=== PATIENT | female | born 1965 | race Caucasian/White ===

== ENCOUNTER 2018-12-05 19:52 | Inpatient (IN) ==
[~2018-12-05 19:52] MED LIST: *HR* Heparin 10,000 UNIT/10 ML VIAL ONE; 0.9 % Sodium Chloride 2,000 ML ONE; Heparin 1,000 UNITS/500 mL 500 ML ONE; ISOVUE-370 200 ML INFUS..BTL ONE; Nitroglycerin 1,000 MCG/10 ML VIAL IV ONE
[2018-12-05] MEDS ORDERED: *HR* FentaNYL (PF) 100 MCG/2 ML VIAL ONE (21:00)
[2018-12-05] MEDS ORDERED: *HR* Midazolam HCl 2 MG/2 ML VIAL ONE (21:00)
[2018-12-05] MEDS ORDERED: Ondansetron 4 MG/2 ML VIAL ONE (21:35)
[2018-12-05] MEDS ORDERED: *HR* Bivalirudin 250 MG VIAL IVC ONE ×2 (21:37→21:40)
[2018-12-05] MEDS ORDERED: Nitroglycerin 0.4 MG TAB.SUBL SL PRN (21:59)
[2018-12-05] MEDS ORDERED: D5% in Water 1,000 ML IVC PRN (22:08)
[2018-12-05] MEDS ORDERED: Dextrose Gel 15 GM/37.5 ML TUBE PO PRN ×2 (22:08)
[2018-12-05] MEDS ORDERED: *HR* Dextrose 50 % in Water (Syg) 50 ML SYRINGE IVP PRN (22:08)
[2018-12-05] MEDS: 0.9 % Sodium Chloride 1,000 ML IVC SCH ×2 (22:30→23:44)
[2018-12-06] MEDS ORDERED: *HR* Atropine Sulfate 1 MG/10 ML SYRINGE IVP ONE ×2 (00:05→01:49)
[2018-12-06] MEDS ORDERED: *HR* Atropine Sulfate 1 MG/10 ML SYRINGE ONE (00:12)
[2018-12-06 04:06] LABS: Basophils # 0.1 K/mcL (0.0-0.2); Basophils % 0.3 %; Hematocrit 31.8 % (35.3-44.9); Immature Granulocytes % 3.5 % (0-4); Lymphocytes # 1.3 K/mcL (0.6-4.6); Lymphocytes % 6.5 %; Mean Corpuscular HGB Conc 31.4 g/dL (31.6-35.5); Mean Corpuscular Volume 85.7 fL (83.0-100.0); Mean Platelet Volume 9.7 fL (9.4-12.4); Monocytes # 1.2 K/mcL (0.0-1.3); Monocytes % 6.1 %; Neutrophils # 16.5 K/mcL (1.6-8.9); Nucleated Red Blood Cells 0.1 /100 WBC (0); Platelet Count 331 K/mcL (140-400); Red Blood Count 3.71 M/mcL (3.82-4.97); Red Cell Distribution Width 14.9 % (11.5-14.5); Segmented Neutrophils % 83.6 %; White Blood Count 19.7 K/mcL (4.3-11.1)
[2018-12-06 04:27] LABS: Bilirubin,Direct 0.1 mg/dL (0.0-0.2); Bilirubin,Indirect 0.2 mg/dL (0.0-1.0); Bilirubin,Total 0.3 mg/dL (0.3-1.0); Total Protein 6.4 g/dL (6.4-8.9)
[2018-12-06 04:28] LABS: Albumin 3.2 g/dL (3.5-5.7); Globulin 3.2 g/dL (2.4-3.5)
[2018-12-06 04:29] LABS: % Iron Saturation 12 % (15-50); Iron 26 mcg/dL (50-170); Transferrin 154 mg/dL (203-362)
[2018-12-06 04:43] LABS: Calcium 7.6 mg/dL (8.6-10.3); Chol/HDL Ratio 5.2 (0-4.9); Potassium 6.1 mEq/L (3.5-5.1); Troponin I 51.46 ng/mL (< 0.04)
[2018-12-06 04:46] LABS: Thyroid Stimulating Hormone 0.952 mcIU/mL (0.340-5.600)
[2018-12-06 04:51] LABS: Ferritin > 1500 ng/mL (10-120)
[2018-12-06] MEDS ORDERED: Insulin DETEMIR 100 UNIT/ML X5UNITS SQ SCH (06:00)
[2018-12-06] MEDS: Ondansetron ODT 4 MG TAB.RAPDIS SL PRN ×3 (06:03→20:17)
[2018-12-06 06:53] LABS: Estimated Average Glucose 223 mg/dl
[2018-12-06] MEDS ORDERED: *HR* Dextrose 50 % in Water (Syg) 50 ML SYRINGE IVP ONE (06:53)
[2018-12-06] MEDS ORDERED: Albuterol 2.5 MG/3 ML NEBULIZER IH ONE (06:53)
[2018-12-06] MEDS ORDERED: Calcium Gluconate 1gm/50mL 1 GM/50 ML BAG IVPB ONE (06:53)
[2018-12-06] MEDS ORDERED: Insulin Human Regular 10 UNIT in 0.9 % Sodium Chloride 10 ML IV ONE (06:53)
[2018-12-06] MEDS: Aspirin 81 MG TAB.CHEW PO SCH (08:10)
[2018-12-06] MEDS: Insulin LISPRO 300 UNITS/3 ML VIAL SQ SCH ×3 (08:10→16:53)
[2018-12-06] MEDS ORDERED: Perflutren Lipid Microsphere 1.3 ML in 0.9 % Sodium Chloride 8.7 ML IVP ONE (08:41)
[2018-12-06] MEDS ORDERED: Perflutren Lipid Microsphere 2 ML VIAL ONE (08:46)
[2018-12-06] MEDS ORDERED: 0.9 % Sodium Chloride 1,000 ML IVC SCH (09:45)
[2018-12-06 10:50] LABS: Complement C3 130 mg/dL (87-200)
[2018-12-06 10:51] LABS: Potassium 5.2 mEq/L (3.5-5.1)
[2018-12-06 11:32] LABS: Bilirubin,Urine Negative (Negative); Blood,Urine Small (Negative); Clarity,Urine Cloudy (Clear); Color,Urine Yellow (Yellow); Glucose,Urine (UA) >=1000 mg/dL (Normal); Ketones,Urine Negative (Negative); Leukocyte Esterase,Urine Negative (Negative); Nitrite,Urine Negative (Negative); PH,Urine 5.5 pH Units (5.0-8.0); Protein,Urine 100 mg/dL (Neg-Trace); Specific Gravity,Urine 1.028 (1.010-1.025); Urobilinogen,Urine Normal (Normal)
[2018-12-06 11:37] LABS: Bacteria,Urine Few per hpf (None-Few); Hyaline Casts,Urine None Seen per lpf (None-Few); Squamous Epithelial Cell,Urine Many per lpf (None-Few)
[2018-12-06 12:13] LABS: Protein/Creatinine Ratio,Urine 1.12 mg/mg (0.00-0.20); Sodium, Urine 27.2 mEq/L
[2018-12-06 13:25] LABS: RBC,Urine 0-3 per hpf (0-3); Yeast,Urine Few per hpf (None Seen)
[2018-12-06] MEDS: 0.9 % Sodium Chloride 1,000 ML IVC SCH (23:45)
[2018-12-07] MEDS: Aspirin 81 MG TAB.CHEW PO SCH (08:05)
[2018-12-07] MEDS: Insulin LISPRO 300 UNITS/3 ML VIAL SQ SCH ×4 (08:06→20:35)
[2018-12-07] MEDS ORDERED: Ergocalciferol (VIT D2) 50,000 UNIT (1.25MG) CAP PO SCH (09:00)
[2018-12-07] MEDS ORDERED: *HR* Heparin 5,000 UNIT/ML VIAL SQ SCH ×2 (09:00)
[2018-12-07 09:21] LABS: Calcium 7.7 mg/dL (8.6-10.3); Potassium 5.1 mEq/L (3.5-5.1)
[2018-12-07] MEDS ORDERED: *HR* Heparin 5,000 UNIT/ML VIAL IVP PRN ×2 (09:32)
[2018-12-07 09:38] LABS: Basophils # 0.1 K/mcL (0.0-0.2); Basophils % 0.4 %; Eosinophils % 0.1 %; Hematocrit 33.9 % (35.3-44.9); Hemoglobin 10.9 g/dL (11.5-15.4); Immature Granulocytes % 2.2 % (0-4); Lymphocytes # 1.8 K/mcL (0.6-4.6); Lymphocytes % 11.1 %; Mean Corpuscular HGB Conc 32.2 g/dL (31.6-35.5); Mean Corpuscular Hemoglobin 27.2 pg (28.0-33.3); Mean Corpuscular Volume 84.5 fL (83.0-100.0); Mean Platelet Volume 9.8 fL (9.4-12.4); Monocytes # 0.8 K/mcL (0.0-1.3); Neutrophils # 13.4 K/mcL (1.6-8.9); Nucleated Red Blood Cells 0.4 /100 WBC (0); Platelet Count 436 K/mcL (140-400); Red Blood Count 4.01 M/mcL (3.82-4.97); Red Cell Distribution Width 15.3 % (11.5-14.5); Segmented Neutrophils % 81.2 %; White Blood Count 16.5 K/mcL (4.3-11.1)
[2018-12-07] MEDS ORDERED: Heparin 25,000 UNIT/250 ML D5W 25,000 UNIT/250 ML IV.SOLN IVC SCH (09:45)
[2018-12-07] MEDS: 0.9 % Sodium Chloride 1,000 ML IVC SCH (10:51)
[2018-12-07] MEDS: Nitroglycerin 25 MG/250 ML INFUS..BTL IVC SCH (11:13)
[2018-12-07 11:19] LABS: Hematocrit 33.8 % (35.3-44.9); Hemoglobin 10.2 g/dL (11.5-15.4); Mean Corpuscular HGB Conc 30.2 g/dL (31.6-35.5); Mean Corpuscular Hemoglobin 26.8 pg (28.0-33.3); Mean Corpuscular Volume 88.9 fL (83.0-100.0); Mean Platelet Volume 9.7 fL (9.4-12.4); Platelet Count 401 K/mcL (140-400); Red Cell Distribution Width 15.4 % (11.5-14.5); White Blood Count 16.8 K/mcL (4.3-11.1)
[2018-12-07 11:37] LABS: Heparin anti-factor XA UFH 0.01 IU/mL (0.30-0.70); INR 1.1
[2018-12-07] MEDS ORDERED: Verapamil 5 MG/2 ML VIAL ONE (11:37)
[2018-12-07] MEDS ORDERED: ISOVUE-370 200 ML INFUS..BTL ONE (11:38)
[2018-12-07] MEDS ORDERED: Nitroglycerin 1,000 MCG/10 ML VIAL IV ONE (11:38)
[2018-12-07] MEDS ORDERED: *HR* Midazolam HCl 2 MG/2 ML VIAL ONE (11:38)
[2018-12-07] MEDS ORDERED: 0.9 % Sodium Chloride 2,000 ML ONE (11:38)
[2018-12-07] MEDS ORDERED: *HR* Heparin 10,000 UNIT/10 ML VIAL ONE ×2 (11:38→12:18)
[2018-12-07] MEDS ORDERED: Heparin 1,000 UNITS/500 mL 500 ML ONE (11:38)
[2018-12-07] MEDS ORDERED: Ondansetron 4 MG/2 ML VIAL ONE (12:02)
[2018-12-07] MEDS ORDERED: 0.9 % Sodium Chloride 250 ML IVC PRN (12:47)
[2018-12-07] MEDS ORDERED: 0.9 % Sodium Chloride 1,000 ML PRIME SCH (13:00)
[2018-12-07 15:37] LABS: Hepatitis B Surface Antibody < 3.10 mIU/mL
[2018-12-07 16:17] LABS: Hepatitis B Core IgM Nonreactive (Nonreactive)
[2018-12-07 16:48] LABS: Hepatitis B Surface Antigen Nonreactive (Nonreactive)
[2018-12-08] MEDS: Ondansetron ODT 4 MG TAB.RAPDIS SL PRN ×3 (00:24→17:18)
[2018-12-08 05:08] LABS: Basophils # 0.1 K/mcL (0.0-0.2); Basophils % 0.4 %; Eosinophils # 0.1 K/mcL (0.0-0.6); Eosinophils % 0.6 %; Hematocrit 29.6 % (35.3-44.9); Hemoglobin 9.6 g/dL (11.5-15.4); Immature Granulocytes % 1.4 % (0-4); Lymphocytes % 12.1 %; Mean Corpuscular HGB Conc 32.4 g/dL (31.6-35.5); Mean Corpuscular Hemoglobin 27.2 pg (28.0-33.3); Mean Corpuscular Volume 83.9 fL (83.0-100.0); Mean Platelet Volume 9.2 fL (9.4-12.4); Monocytes % 6.1 %; Neutrophils # 13.4 K/mcL (1.6-8.9); Nucleated Red Blood Cells 0.5 /100 WBC (0); Platelet Count 376 K/mcL (140-400); Red Blood Count 3.53 M/mcL (3.82-4.97); Red Cell Distribution Width 15.6 % (11.5-14.5); Segmented Neutrophils % 79.4 %; White Blood Count 16.8 K/mcL (4.3-11.1)
[2018-12-08 05:17] LABS: Kappa Qnt Free Light Chains 6.84 mg/dL (0.33-1.94); Lambda Qnt Free Light Chains 5.72 mg/dL (0.57-2.63)
[2018-12-08 05:27] LABS: Calcium 7.5 mg/dL (8.6-10.3); Potassium 4.8 mEq/L (3.5-5.1)
[2018-12-08 05:58] LABS: Urine Collection Volume RANDOM mL
[2018-12-08] MEDS: *HR* Heparin 5,000 UNIT/ML VIAL SQ SCH ×2 (06:10→17:44)
[2018-12-08] MEDS ORDERED: *HR* Atropine Sulfate 1 MG/10 ML SYRINGE ONE (06:54)
[2018-12-08] MEDS ORDERED: 0.9 % Sodium Chloride 250 ML IVC PRN (07:02)
[2018-12-08] MEDS ORDERED: Albumin 25% 25gram/100mL 25 GM/100 ML IV.SOLN IVPB PRN (07:02)
[2018-12-08] MEDS ORDERED: *HR* Heparin 10,000 UNIT/10 ML VIAL IV PRN (08:03)
[2018-12-08] MEDS: Aspirin 81 MG TAB.CHEW PO SCH (11:45)
[2018-12-08 13:09] LABS: ANA IgG by ELISA NONE DETECTED (None Detected); Serine Protease-3 Antibody 4 AU/mL (0-19)
[2018-12-08] MEDS: Insulin LISPRO 300 UNITS/3 ML VIAL SQ SCH ×4 (19:34→19:55)
[2018-12-08] MEDS: Nitroglycerin 25 MG/250 ML INFUS..BTL IVC SCH (19:54)
[2018-12-09] MEDS: *HR* Heparin 5,000 UNIT/ML VIAL SQ SCH ×2 (05:33→19:37)
[2018-12-09] MEDS ORDERED: *HR* Heparin 10,000 UNIT/10 ML VIAL ONE (09:13)
[2018-12-09] MEDS ORDERED: 0.9 % Sodium Chloride 1,000 ML ONE ×2 (09:13→09:52)
[2018-12-09] MEDS ORDERED: *HR* Atropine Sulfate 1 MG/10 ML SYRINGE IV ONE (10:25)
[2018-12-09] MEDS ORDERED: *HR* Promethazine 25 MG/ML VIAL ONE (16:08)
[2018-12-09 18:00] LABS: Alpha 2 Globulin (PEP) 1.32 g/dL (0.48-1.05); Beta Globulin (PEP) 0.67 g/dL (0.48-1.10)
[2018-12-09] MEDS ORDERED: Famotidine 20 MG/2 ML VIAL ONE (19:01)
[2018-12-09] MEDS: Aspirin 81 MG TAB.CHEW PO SCH (19:36)
[2018-12-09] MEDS: Insulin LISPRO 300 UNITS/3 ML VIAL SQ SCH ×2 (19:36→19:37)
[2018-12-09] MEDS ORDERED: *HR* Promethazine 25 MG/ML VIAL IV PRN (21:12)
[2018-12-09] MEDS: Famotidine 20 MG/2 ML VIAL IVP SCH (21:54)
[2018-12-10 00:58] LABS: Basophils # 0.1 K/mcL (0.0-0.2); Basophils % 0.4 %; Eosinophils # 0.1 K/mcL (0.0-0.6); Eosinophils % 0.9 %; Hemoglobin 9.2 g/dL (11.5-15.4); Immature Granulocytes % 1.8 % (0-4); Lymphocytes % 14.8 %; Mean Corpuscular HGB Conc 30.7 g/dL (31.6-35.5); Mean Corpuscular Hemoglobin 26.8 pg (28.0-33.3); Mean Corpuscular Volume 87.5 fL (83.0-100.0); Monocytes % 7.2 %; Neutrophils # 10.2 K/mcL (1.6-8.9); Nucleated Red Blood Cells 0.6 /100 WBC (0); Platelet Count 331 K/mcL (140-400); Red Blood Count 3.43 M/mcL (3.82-4.97); Red Cell Distribution Width 15.7 % (11.5-14.5); Segmented Neutrophils % 74.9 %; White Blood Count 13.7 K/mcL (4.3-11.1)
[2018-12-10 01:26] LABS: Calcium 7.7 mg/dL (8.6-10.3); Magnesium 2.2 mg/dL (1.6-2.6); Phosphorous 7.5 mg/dL (2.7-4.5); Potassium 4.6 mEq/L (3.5-5.1)
[2018-12-10 04:08] LABS: Basophils # 0.1 K/mcL (0.0-0.2); Basophils % 0.4 %; Eosinophils # 0.1 K/mcL (0.0-0.6); Hematocrit 29.7 % (35.3-44.9); Immature Granulocytes % 2.1 % (0-4); Lymphocytes % 22.1 %; Mean Corpuscular HGB Conc 30.3 g/dL (31.6-35.5); Mean Corpuscular Hemoglobin 26.8 pg (28.0-33.3); Mean Corpuscular Volume 88.4 fL (83.0-100.0); Mean Platelet Volume 9.5 fL (9.4-12.4); Monocytes # 1.1 K/mcL (0.0-1.3); Monocytes % 7.8 %; Nucleated Red Blood Cells 0.9 /100 WBC (0); Platelet Count 332 K/mcL (140-400); Red Blood Count 3.36 M/mcL (3.82-4.97); Red Cell Distribution Width 15.8 % (11.5-14.5); Segmented Neutrophils % 66.6 %; White Blood Count 13.5 K/mcL (4.3-11.1)
[2018-12-10 04:26] LABS: Calcium 7.9 mg/dL (8.6-10.3); Magnesium 2.3 mg/dL (1.6-2.6); Potassium 4.8 mEq/L (3.5-5.1)
[2018-12-10] MEDS: *HR* Heparin 5,000 UNIT/ML VIAL SQ SCH ×2 (05:04→17:06)
[2018-12-10 07:14] LABS: IFE Reflexed IFE Done; Immunoglobulin A 234 mg/dL (68-408); Immunoglobulin G 1060 mg/dL (768-1632); Immunoglobulin M 34 mg/dL (35-263)
[2018-12-10] MEDS: Aspirin 81 MG TAB.CHEW PO SCH (08:43)
[2018-12-10] MEDS: Famotidine 20 MG/2 ML VIAL IVP SCH ×2 (08:43→20:46)
[2018-12-10] MEDS: Insulin LISPRO 300 UNITS/3 ML VIAL SQ SCH ×4 (08:44→20:50)
[2018-12-10] MEDS ORDERED: *HR* Promethazine 25 MG/ML VIAL IV PRN (17:17)
[2018-12-10] MEDS ORDERED: Nitroglycerin 0.4 MG TAB.SUBL SL PRN (17:17)
[2018-12-10] MEDS ORDERED: *HR* Dextrose 50 % in Water (Syg) 50 ML SYRINGE IVP PRN (17:17)
[2018-12-10] MEDS ORDERED: Albumin 25% 25gram/100mL 25 GM/100 ML IV.SOLN IVPB PRN (17:17)
[2018-12-10] MEDS ORDERED: 0.9 % Sodium Chloride 250 ML IVC PRN (17:17)
[2018-12-10] MEDS ORDERED: Dextrose Gel 15 GM/37.5 ML TUBE PO PRN ×2 (17:17)
[2018-12-10] MEDS ORDERED: D5% in Water 1,000 ML IVC PRN (17:17)
[2018-12-10] MEDS ORDERED: 0.9 % Sodium Chloride 1,000 ML PRIME SCH (17:17)
[2018-12-10] MEDS ORDERED: *HR* Heparin 10,000 UNIT/10 ML VIAL IV PRN (17:17)
[2018-12-10] MEDS ORDERED: Cholecalciferol (D-3) 1,000 UNIT (25MCG) TABLET PO SCH (19:00)
[2018-12-10] MEDS ORDERED: NON-FORMULARY MEDICATION 1 EACH EACH (Atorvastatin Calcium [Lipitor] 80 MG) PO SCH (21:00)
[2018-12-11 04:50] LABS: Hematocrit 29.2 % (35.3-44.9); Hemoglobin 9.3 g/dL (11.5-15.4); Mean Corpuscular HGB Conc 31.8 g/dL (31.6-35.5); Mean Corpuscular Hemoglobin 26.8 pg (28.0-33.3); Mean Corpuscular Volume 84.1 fL (83.0-100.0); Platelet Count 302 K/mcL (140-400); Red Blood Count 3.47 M/mcL (3.82-4.97); Red Cell Distribution Width 15.4 % (11.5-14.5); White Blood Count 11.8 K/mcL (4.3-11.1)
[2018-12-11 05:10] LABS: Calcium 7.9 mg/dL (8.6-10.3); Potassium 4.5 mEq/L (3.5-5.1)
[2018-12-11] MEDS ORDERED: *HR* Heparin 10,000 UNIT/10 ML VIAL IV PRN (07:56)
[2018-12-11] MEDS ORDERED: 0.9 % Sodium Chloride 250 ML IVC PRN (07:56)
[2018-12-11] MEDS ORDERED: 0.9 % Sodium Chloride 1,000 ML PRIME SCH (08:00)
[2018-12-11] MEDS: *HR* Heparin 5,000 UNIT/ML VIAL SQ SCH ×2 (08:04→18:35)
[2018-12-11] MEDS: Aspirin 81 MG TAB.CHEW PO SCH (08:59)
[2018-12-11] MEDS: Famotidine 20 MG/2 ML VIAL IVP SCH ×2 (08:59→20:11)
[2018-12-11] MEDS: Insulin LISPRO 300 UNITS/3 ML VIAL SQ SCH ×4 (09:00→20:09)
[2018-12-12 01:33] LABS: Hematocrit 29.8 % (35.3-44.9); Hemoglobin 9.7 g/dL (11.5-15.4); Mean Corpuscular HGB Conc 32.6 g/dL (31.6-35.5); Mean Corpuscular Hemoglobin 27.2 pg (28.0-33.3); Mean Corpuscular Volume 83.5 fL (83.0-100.0); Mean Platelet Volume 9.7 fL (9.4-12.4); Platelet Count 292 K/mcL (140-400); Red Blood Count 3.57 M/mcL (3.82-4.97); Red Cell Distribution Width 15.2 % (11.5-14.5); White Blood Count 10.9 K/mcL (4.3-11.1)
[2018-12-12 01:53] LABS: Potassium 4.9 mEq/L (3.5-5.1)
[2018-12-12] MEDS: *HR* Heparin 5,000 UNIT/ML VIAL SQ SCH ×2 (04:33→18:07)
[2018-12-12] MEDS ORDERED: CeFAZolin Syr 3,000MG/30 ML 3,000 MG/30 ML SYRINGE IVPB ONE (08:16)
[2018-12-12] MEDS: Insulin LISPRO 300 UNITS/3 ML VIAL SQ SCH ×3 (08:30→18:03)
[2018-12-12] MEDS: Aspirin 81 MG TAB.CHEW PO SCH (09:02)
[2018-12-12] MEDS: Famotidine 20 MG/2 ML VIAL IVP SCH ×2 (09:03→21:12)
[2018-12-12 10:39] LABS: Potassium,Urine 11.4 mEq/L; Protein/Creatinine Ratio,Urine 0.87 mg/mg (0.00-0.20); Sodium, Urine 43.1 mEq/L
[2018-12-12] MEDS ORDERED: Famotidine 20 MG/2 ML VIAL IVP SCH (10:45)
[2018-12-12] MEDS: amLODIPine 5 MG TABLET PO SCH (11:01)
[2018-12-12] MEDS ORDERED: *HR* Midazolam HCl 2 MG/2 ML VIAL ONE ×2 (14:00→15:11)
[2018-12-12] MEDS ORDERED: 0.9 % Sodium Chloride 1,000 ML ONE (14:01)
[2018-12-12] MEDS ORDERED: 0.9 % Sodium Chloride 500 ML ONE (14:01)
[2018-12-12] MEDS ORDERED: *HR* FentaNYL (PF) 100 MCG/2 ML VIAL ONE (14:01)
[2018-12-12] MEDS: Insulin DETEMIR 100 UNIT/ML X5UNITS SQ SCH (21:12)
[2018-12-13 05:11] LABS: Hematocrit 27.1 % (35.3-44.9); Hemoglobin 8.5 g/dL (11.5-15.4); Mean Corpuscular HGB Conc 31.4 g/dL (31.6-35.5); Mean Corpuscular Hemoglobin 26.7 pg (28.0-33.3); Mean Corpuscular Volume 85.2 fL (83.0-100.0); Mean Platelet Volume 9.3 fL (9.4-12.4); Platelet Count 288 K/mcL (140-400); Red Blood Count 3.18 M/mcL (3.82-4.97); Red Cell Distribution Width 14.9 % (11.5-14.5)
[2018-12-13 05:28] LABS: Calcium 8.1 mg/dL (8.6-10.3); Magnesium 2.4 mg/dL (1.6-2.6); Potassium 5.1 mEq/L (3.5-5.1)
[2018-12-13] MEDS: *HR* Heparin 5,000 UNIT/ML VIAL SQ SCH ×2 (05:35→17:26)
[2018-12-13] MEDS: amLODIPine 5 MG TABLET PO SCH (08:03)
[2018-12-13] MEDS: Aspirin 81 MG TAB.CHEW PO SCH (08:03)
[2018-12-13] MEDS: Famotidine 20 MG/2 ML VIAL IVP SCH ×2 (08:04→20:18)
[2018-12-13] MEDS: Insulin LISPRO 300 UNITS/3 ML VIAL SQ SCH ×3 (08:06→17:27)
[2018-12-13] MEDS: Metoprolol XL (24 HR) Succ 25 MG TAB.ER.24H PO SCH (11:35)
[2018-12-13] MEDS: Insulin DETEMIR 100 UNIT/ML X5UNITS SQ SCH (20:19)
[2018-12-14 02:14] LABS: Hematocrit 28.2 % (35.3-44.9); Mean Corpuscular HGB Conc 31.9 g/dL (31.6-35.5); Mean Corpuscular Hemoglobin 26.7 pg (28.0-33.3); Mean Corpuscular Volume 83.7 fL (83.0-100.0); Platelet Count 275 K/mcL (140-400); Red Blood Count 3.37 M/mcL (3.82-4.97); White Blood Count 10.2 K/mcL (4.3-11.1)
[2018-12-14 02:33] LABS: Calcium 8.1 mg/dL (8.6-10.3); Potassium 5.4 mEq/L (3.5-5.1)
[2018-12-14] MEDS: *HR* Heparin 5,000 UNIT/ML VIAL SQ SCH ×2 (05:27→17:49)
[2018-12-14] MEDS: Insulin LISPRO 300 UNITS/3 ML VIAL SQ SCH ×3 (08:18→16:57)
[2018-12-14] MEDS: Aspirin 81 MG TAB.CHEW PO SCH (08:20)
[2018-12-14] MEDS: Metoprolol XL (24 HR) Succ 25 MG TAB.ER.24H PO SCH (08:20)
[2018-12-14] MEDS: amLODIPine 5 MG TABLET PO SCH (08:21)
[2018-12-14] MEDS: Famotidine 20 MG/2 ML VIAL IVP SCH (08:21)
[2018-12-14] MEDS ORDERED: Ergocalciferol (VIT D2) 50,000 UNIT (1.25MG) CAP PO SCH (09:00)
[2018-12-14] MEDS ORDERED: Furosemide 20 MG TABLET PO SCH (09:00)
[2018-12-14] MEDS ORDERED: Insulin Human Regular 10 UNIT in 0.9 % Sodium Chloride 10 ML IV ONE (12:58)
[2018-12-14] MEDS ORDERED: *HR* Dextrose 25% in Water (Syg) 10 ML SYRINGE IVP ONE (12:59)
[2018-12-14 15:10] VITALS: BP 156/76
== END 2018-12-14 20:31 | disposition home or self-care (01) | DRG 242 ==
LOC: ICNU 21:54 → SUATTDRO 21:54 → 2NNU 12-11 13:17 → 2NENU 12-13 13:28
PROVIDERS: ADMIT Internal Medicine Interventional Cardiology; ATTEND Internal Medicine

== ENCOUNTER 2019-01-23 09:04 | Observation (INO) ==
[2019-01-23] MEDS ORDERED: *HR* HYDROcodone/Acet 5/325 mg TABLET PO ONE (09:55)
[2019-01-23 10:24] LABS: Basophils # 0.1 K/mcL (0.0-0.2); Basophils % 0.4 %; Eosinophils # 0.3 K/mcL (0.0-0.6); Eosinophils % 2.3 %; Hematocrit 28.8 % (35.3-44.9); Hemoglobin 9.1 g/dL (11.5-15.4); Immature Granulocytes % 1.6 % (0-4); Lymphocytes # 1.5 K/mcL (0.6-4.6); Lymphocytes % 10.4 %; Mean Corpuscular HGB Conc 31.6 g/dL (31.6-35.5); Mean Corpuscular Hemoglobin 25.8 pg (28.0-33.3); Mean Corpuscular Volume 81.6 fL (83.0-100.0); Mean Platelet Volume 8.5 fL (9.4-12.4); Monocytes # 0.9 K/mcL (0.0-1.3); Monocytes % 6.1 %; Neutrophils # 11.2 K/mcL (1.6-8.9); Platelet Count 431 K/mcL (140-400); Red Blood Count 3.53 M/mcL (3.82-4.97); Red Cell Distribution Width 15.2 % (11.5-14.5); Segmented Neutrophils % 79.2 %; White Blood Count 14.1 K/mcL (4.3-11.1)
[2019-01-23 10:42] LABS: Calcium 9.1 mg/dL (8.6-10.3); Potassium 4.7 mEq/L (3.5-5.1); Uric Acid 9.2 mg/dL (2.3-7.6)
[2019-01-23] MEDS ORDERED: predniSONE 20 MG TABLET PO ONE (11:22)
[2019-01-23] MEDS ORDERED: Ketorolac 15 MG/ML VIAL IVP ONE (11:32)
[2019-01-23] MEDS ORDERED: Ondansetron 4 MG/2 ML VIAL IVP PRN (11:53)
[2019-01-23] MEDS ORDERED: Acetaminophen 325 MG TABLET PO PRN (11:55)
[2019-01-23] MEDS ORDERED: *HR* Labetalol 20 MG/4 ML SYRINGE IVP PRN (11:55)
[2019-01-23] MEDS ORDERED: Naloxone 0.4 MG/ML INJ IVP PRN (11:55)
[2019-01-23] MEDS ORDERED: *HR* OxyCODONE Immed Rel 5 MG TABLET PO PRN (11:55)
[2019-01-23] MEDS ORDERED: Dextrose Gel 15 GM/37.5 ML TUBE PO PRN ×2 (11:56)
[2019-01-23] MEDS ORDERED: D5% in Water 1,000 ML IVC PRN (11:56)
[2019-01-23] MEDS ORDERED: *HR* Dextrose 50 % in Water (Syg) 50 ML SYRINGE IVP PRN (11:56)
[2019-01-23] MEDS: Insulin LISPRO 300 UNITS/3 ML VIAL SQ SCH ×2 (17:43→20:33)
[2019-01-23] MEDS: *HR* HYDROcodone/Acet 5/325 mg TABLET PO PRN (20:32)
[2019-01-23] MEDS: Insulin DETEMIR 100 UNIT/ML X5UNITS SQ SCH (21:57)
[2019-01-24 05:07] LABS: Basophils # 0.1 K/mcL (0.0-0.2); Basophils % 0.6 %; Eosinophils # 0.5 K/mcL (0.0-0.6); Eosinophils % 3.8 %; Hematocrit 28.8 % (35.3-44.9); Hemoglobin 8.9 g/dL (11.5-15.4); Lymphocytes # 1.5 K/mcL (0.6-4.6); Lymphocytes % 11.4 %; Mean Corpuscular HGB Conc 30.9 g/dL (31.6-35.5); Mean Corpuscular Volume 80.9 fL (83.0-100.0); Monocytes % 7.3 %; Neutrophils # 9.9 K/mcL (1.6-8.9); Platelet Count 495 K/mcL (140-400); Red Blood Count 3.56 M/mcL (3.82-4.97); Red Cell Distribution Width 15.2 % (11.5-14.5); Segmented Neutrophils % 74.9 %; White Blood Count 13.3 K/mcL (4.3-11.1)
[2019-01-24 05:32] LABS: Calcium 8.7 mg/dL (8.6-10.3); Magnesium 2.3 mg/dL (1.6-2.6); Potassium 4.8 mEq/L (3.5-5.1)
[2019-01-24] MEDS: amLODIPine 5 MG TABLET PO SCH (07:39)
[2019-01-24] MEDS: Aspirin 81 MG TAB.CHEW PO SCH (07:39)
[2019-01-24] MEDS: Metoprolol XL (24 HR) Succ 50 MG TAB.ER.24H PO SCH (07:39)
[2019-01-24] MEDS: Insulin LISPRO 300 UNITS/3 ML VIAL SQ SCH ×3 (07:40→16:36)
[2019-01-24] MEDS ORDERED: Furosemide 20 MG TABLET PO SCH (09:00)
[2019-01-24] MEDS: predniSONE 20 MG TABLET PO SCH (09:05)
[2019-01-24] MEDS: *HR* HYDROcodone/Acet 5/325 mg TABLET PO PRN (14:08)
[2019-01-25] MEDS: *HR* HYDROcodone/Acet 5/325 mg TABLET PO PRN ×2 (00:13→08:16)
[2019-01-25] MEDS: Insulin LISPRO 300 UNITS/3 ML VIAL SQ SCH ×8 (00:14→20:55)
[2019-01-25] MEDS: Insulin DETEMIR 100 UNIT/ML X5UNITS SQ SCH (00:14)
[2019-01-25 07:41] LABS: Basophils # 0.1 K/mcL (0.0-0.2); Basophils % 0.4 %; Eosinophils % 0.2 %; Hematocrit 27.8 % (35.3-44.9); Hemoglobin 8.7 g/dL (11.5-15.4); Immature Granulocytes % 2.9 % (0-4); Lymphocytes # 1.6 K/mcL (0.6-4.6); Lymphocytes % 10.6 %; Mean Corpuscular HGB Conc 31.3 g/dL (31.6-35.5); Mean Corpuscular Hemoglobin 25.1 pg (28.0-33.3); Mean Corpuscular Volume 80.3 fL (83.0-100.0); Mean Platelet Volume 9.1 fL (9.4-12.4); Monocytes # 0.9 K/mcL (0.0-1.3); Monocytes % 5.9 %; Neutrophils # 11.8 K/mcL (1.6-8.9); Platelet Count 535 K/mcL (140-400); Red Blood Count 3.46 M/mcL (3.82-4.97); Red Cell Distribution Width 15.1 % (11.5-14.5); White Blood Count 14.7 K/mcL (4.3-11.1)
[2019-01-25] MEDS: predniSONE 20 MG TABLET PO SCH (08:16)
[2019-01-25] MEDS: Metoprolol XL (24 HR) Succ 50 MG TAB.ER.24H PO SCH (08:16)
[2019-01-25] MEDS: Aspirin 81 MG TAB.CHEW PO SCH (08:16)
[2019-01-25] MEDS: amLODIPine 5 MG TABLET PO SCH (08:16)
[2019-01-25 09:12] LABS: Calcium 8.9 mg/dL (8.6-10.3); Potassium 5.1 mEq/L (3.5-5.1)
[2019-01-25 09:57] LABS: ANA IgG by ELISA DETECTED (None Detected)
[2019-01-25] MEDS ORDERED: Insulin DETEMIR 100 UNIT/ML X5UNITS SQ SCH (21:00)
[2019-01-26 04:30] LABS: Basophils # 0.1 K/mcL (0.0-0.2); Basophils % 0.3 %; Eosinophils % 0.1 %; Hematocrit 26.9 % (35.3-44.9); Hemoglobin 8.7 g/dL (11.5-15.4); Immature Granulocytes % 3.4 % (0-4); Lymphocytes # 1.8 K/mcL (0.6-4.6); Lymphocytes % 11.2 %; Mean Corpuscular HGB Conc 32.3 g/dL (31.6-35.5); Mean Corpuscular Hemoglobin 25.9 pg (28.0-33.3); Mean Corpuscular Volume 80.1 fL (83.0-100.0); Mean Platelet Volume 8.7 fL (9.4-12.4); Monocytes # 0.9 K/mcL (0.0-1.3); Monocytes % 5.8 %; Neutrophils # 12.9 K/mcL (1.6-8.9); Nucleated Red Blood Cells 0.2 /100 WBC (0); Platelet Count 574 K/mcL (140-400); Red Blood Count 3.36 M/mcL (3.82-4.97); Segmented Neutrophils % 79.2 %; White Blood Count 16.3 K/mcL (4.3-11.1)
[2019-01-26 04:57] LABS: Potassium 5.1 mEq/L (3.5-5.1)
[2019-01-26 07:39] VITALS: BP 163/95
[2019-01-26] MEDS: Metoprolol XL (24 HR) Succ 50 MG TAB.ER.24H PO SCH (09:14)
[2019-01-26] MEDS: Aspirin 81 MG TAB.CHEW PO SCH (09:14)
[2019-01-26] MEDS: amLODIPine 5 MG TABLET PO SCH (09:14)
[2019-01-26] MEDS: predniSONE 20 MG TABLET PO SCH (09:16)
[2019-01-26] MEDS: Insulin LISPRO 300 UNITS/3 ML VIAL SQ SCH ×4 (09:17→13:50)
[2019-01-26 17:35] LABS: ANA HEp-2 IgG IFA DETECTED (<1:80); Anti Nuclear Ab Pattern SPECKLED
== END 2019-01-26 16:05 | disposition home or self-care (01) ==
LOC: 3NENU 09:04 → EMEROOARM 09:04 → 3NENU 15:40
PROVIDERS: ADMIT Internal Medicine; ATTEND Internal Medicine

== ENCOUNTER 2019-02-12 18:51 | Inpatient (IN) ==
[2019-02-12] MEDS ORDERED: Ondansetron 4 MG/2 ML VIAL IVP ONE (22:08)
[2019-02-12] MEDS ORDERED: Ondansetron 4 MG/2 ML VIAL ONE (22:09)
[2019-02-12] MEDS ORDERED: *HR* Heparin 5,000 UNIT/ML VIAL IVP ONE (22:45)
[2019-02-12] MEDS ORDERED: *HR* Heparin 5,000 UNIT/ML VIAL IVP PRN ×2 (22:45)
[2019-02-12 23:37] LABS: Basophils # 0.1 K/mcL (0.0-0.2); Basophils % 0.5 %; Eosinophils # 0.2 K/mcL (0.0-0.6); Eosinophils % 1.5 %; Hematocrit 34.9 % (35.3-44.9); Hemoglobin 10.6 g/dL (11.5-15.4); Immature Granulocytes % 2.7 % (0-4); Lymphocytes # 1.3 K/mcL (0.6-4.6); Lymphocytes % 10.3 %; Mean Corpuscular HGB Conc 30.4 g/dL (31.6-35.5); Mean Corpuscular Hemoglobin 25.8 pg (28.0-33.3); Mean Corpuscular Volume 84.9 fL (83.0-100.0); Monocytes # 0.8 K/mcL (0.0-1.3); Monocytes % 5.9 %; Neutrophils # 10.2 K/mcL (1.6-8.9); Nucleated Red Blood Cells 0.3 /100 WBC (0); Platelet Count 263 K/mcL (140-400); Red Blood Count 4.11 M/mcL (3.82-4.97); Red Cell Distribution Width 16.8 % (11.5-14.5); Segmented Neutrophils % 79.1 %; White Blood Count 12.9 K/mcL (4.3-11.1)
[2019-02-12 23:44] LABS: Heparin anti-factor XA UFH 0.18 IU/mL (0.30-0.70)
[2019-02-12 23:45] LABS: INR 1.1; Prothrombin Time 12.2 Seconds (9.4-12.1)
[2019-02-13] MEDS: Heparin 25,000 UNIT/250 ML D5W 25,000 UNIT/250 ML IV.SOLN IVC SCH ×2 (00:09→16:46)
[2019-02-13 00:22] LABS: Albumin 3.2 g/dL (3.5-5.7); Albumin/Globulin Ratio 1.1 (1.1-2.2); Bilirubin,Total 2.1 mg/dL (0.3-1.0); Calcium 8.1 mg/dL (8.6-10.3); Globulin 2.9 g/dL (2.4-3.5); Potassium 5.9 mEq/L (3.5-5.1); Total Protein 6.1 g/dL (6.4-8.9)
[2019-02-13] MEDS ORDERED: Dextrose Gel 15 GM/37.5 ML TUBE PO PRN ×4 (00:37→14:24)
[2019-02-13] MEDS ORDERED: *HR* Dextrose 50 % in Water (Syg) 50 ML SYRINGE IVP PRN ×2 (00:37→14:24)
[2019-02-13] MEDS ORDERED: Calcium Gluconate 1gm/50mL 1 GM/50 ML BAG IVPB ONE (00:37)
[2019-02-13] MEDS ORDERED: D5% in Water 1,000 ML IVC PRN ×2 (00:37→14:24)
[2019-02-13] MEDS ORDERED: Insulin Human Regular 10 UNIT in 0.9 % Sodium Chloride 10 ML IV ONE (00:38)
[2019-02-13] MEDS ORDERED: Albuterol 2.5 MG/3 ML NEBULIZER IH ONE (00:42)
[2019-02-13 00:43] LABS: Troponin I 0.06 ng/mL (< 0.04)
[2019-02-13] MEDS: Furosemide 20 MG/2 ML VIAL IVP SCH ×2 (01:07→09:24)
[2019-02-13] MEDS: *HR* Metoprolol 5 MG/5 ML VIAL IVP PRN ×3 (01:08→01:30)
[2019-02-13] MEDS ORDERED: Amiodarone Premix 150 MG/100 ML BAG IVPB ONE (01:35)
[2019-02-13] MEDS ORDERED: Naloxone 0.4 MG/ML INJ IVP PRN ×2 (01:38→14:24)
[2019-02-13] MEDS ORDERED: Ondansetron 4 MG/2 ML VIAL IVP PRN ×2 (01:38→14:24)
[2019-02-13] MEDS ORDERED: *HR* Promethazine 25 MG/ML VIAL IVP PRN ×2 (01:38→14:24)
[2019-02-13] MEDS ORDERED: Amiodarone Premix 360 MG/200 ML BAG IVC ONE (02:00)
[2019-02-13] MEDS ORDERED: Insulin LISPRO 300 UNITS/3 ML VIAL SQ SCH ×2 (06:00→11:02)
[2019-02-13 06:04] LABS: Mean Corpuscular Hemoglobin 25.6 pg (28.0-33.3); Mean Platelet Volume 10.2 fL (9.4-12.4)
[2019-02-13 06:05] LABS: Hematocrit 35.2 % (35.3-44.9); Hemoglobin 10.4 g/dL (11.5-15.4); Mean Corpuscular HGB Conc 29.5 g/dL (31.6-35.5); Mean Corpuscular Volume 86.7 fL (83.0-100.0); Platelet Count 215 K/mcL (140-400); Red Blood Count 4.06 M/mcL (3.82-4.97); Red Cell Distribution Width 16.9 % (11.5-14.5)
[2019-02-13] MEDS ORDERED: 0.9 % Sodium Chloride 1,000 ML IVC ONE (06:55)
[2019-02-13] MEDS ORDERED: Amiodarone Premix 360 MG/200 ML BAG IVC SCH ×2 (08:00→14:24)
[2019-02-13 08:06] LABS: Calcium 8.2 mg/dL (8.6-10.3); Potassium 5.4 mEq/L (3.5-5.1)
[2019-02-13 08:33] LABS: Troponin I 0.04 ng/mL (< 0.04)
[2019-02-13] MEDS ORDERED: MethylPREDNISolone 40 MG/ML VIAL IVP SCH (08:59)
[2019-02-13] MEDS ORDERED: Doxycycline 100 MG in 0.9 % Sodium Chloride Mini Bag 100 ML IVPB SCH (10:00)
[2019-02-13 10:29] LABS: Adenovirus Not Detected (Not Detect); Bordetella Pertussis Not Detected (Not Detect); Chlamydophila pneumoniae Not Detected (Not Detect); Coronavirus 229E Not Detected (Not Detect); Coronavirus HKU1 Not Detected (Not Detect); Coronavirus NL63 Not Detected (Not Detect); Coronavirus OC43 Not Detected (Not Detect); Human Metapneumovirus Not Detected (Not Detect); Human Rhinovirus/Enterovirus Not Detected (Not Detect); Influenza A Subtype 2009 H1 Not Detected (Not Detect); Influenza B Not Detected (Not Detect); Mycoplasma pneumoniae Not Detected (Not Detect); Parainfluenza Virus 1 Not Detected (Not Detect); Parainfluenza Virus 2 Not Detected (Not Detect); Parainfluenza Virus 3 Not Detected (Not Detect); Parainfluenza Virus 4 Not Detected (Not Detect); Respiratory Syncytial Virus Not Detected (Not Detect)
[2019-02-13] MEDS ORDERED: Insulin DETEMIR 100 UNIT/ML X5UNITS SQ ONE (11:01)
[2019-02-13] MEDS ORDERED: Lidocaine Viscous Oral Soln 15 ML SOLUTION MM PRN (12:04)
[2019-02-13] MEDS ORDERED: 0.9 % Sodium Chloride 500 ML IVC ONE (12:04)
[2019-02-13] MEDS: *HR* Midazolam HCl 5 MG/5 ML VIAL IVP PRN ×4 (12:40→13:00)
[2019-02-13] MEDS: *HR* FentaNYL (PF) 100 MCG/2 ML VIAL IVP PRN ×4 (12:40→13:10)
[2019-02-13] MEDS ORDERED: *HR* Heparin 5,000 UNIT/ML VIAL IVP PRN ×2 (14:24)
[2019-02-13] MEDS ORDERED: *HR* Metoprolol 5 MG/5 ML VIAL IVP PRN (14:24)
[2019-02-13] MEDS ORDERED: Heparin 25,000 UNIT/250 ML D5W 25,000 UNIT/250 ML IV.SOLN IVC SCH (14:24)
[2019-02-13] MEDS ORDERED: Metoprolol XL (24 HR) Succ 50 MG TAB.ER.24H PO ONE (14:45)
[2019-02-13] MEDS: Levalbuterol Neb 1.25 MG/3 ML IH SCH ×2 (15:49→21:07)
[2019-02-13] MEDS ORDERED: Levalbuterol Neb 1.25 MG/3 ML IH SCH (16:00)
[2019-02-13 16:59] LABS: Calcium 8.3 mg/dL (8.6-10.3); Potassium 5.7 mEq/L (3.5-5.1)
[2019-02-13] MEDS: Calcium Gluconate 1gm/50mL 1 GM/50 ML BAG IVPB SCH ×2 (18:05→19:50)
[2019-02-13] MEDS: MethylPREDNISolone 40 MG/ML VIAL IVP SCH (18:05)
[2019-02-13] MEDS: Insulin LISPRO 300 UNITS/3 ML VIAL SQ SCH (18:25)
[2019-02-13] MEDS: Apixaban 5 MG TABLET PO SCH (19:50)
[2019-02-13] MEDS ORDERED: Acetaminophen 325 MG TABLET PO PRN (20:10)
[2019-02-13] MEDS: Doxycycline 100 MG in 0.9 % Sodium Chloride Mini Bag 100 ML IVPB SCH (20:33)
[2019-02-13 20:56] LABS: Calcium 8.8 mg/dL (8.6-10.3); Potassium 5.3 mEq/L (3.5-5.1)
[2019-02-14] MEDS: Insulin LISPRO 300 UNITS/3 ML VIAL SQ SCH ×5 (00:08→19:59)
[2019-02-14] MEDS: Levalbuterol Neb 1.25 MG/3 ML IH SCH ×4 (03:24→22:20)
[2019-02-14 04:56] LABS: Basophils # 0.1 K/mcL (0.0-0.2); Basophils % 0.3 %; Hematocrit 32.8 % (35.3-44.9); Hemoglobin 9.9 g/dL (11.5-15.4); Immature Granulocytes % 4.3 % (0-4); Lymphocytes # 1.3 K/mcL (0.6-4.6); Lymphocytes % 6.6 %; Mean Corpuscular HGB Conc 30.2 g/dL (31.6-35.5); Mean Corpuscular Hemoglobin 25.4 pg (28.0-33.3); Mean Corpuscular Volume 84.3 fL (83.0-100.0); Mean Platelet Volume 10.1 fL (9.4-12.4); Monocytes % 5.1 %; Neutrophils # 16.3 K/mcL (1.6-8.9); Nucleated Red Blood Cells 0.5 /100 WBC (0); Platelet Count 247 K/mcL (140-400); Red Blood Count 3.89 M/mcL (3.82-4.97); Red Cell Distribution Width 17.1 % (11.5-14.5); Segmented Neutrophils % 83.7 %; White Blood Count 19.4 K/mcL (4.3-11.1)
[2019-02-14 05:16] LABS: Calcium 8.8 mg/dL (8.6-10.3)
[2019-02-14] MEDS: MethylPREDNISolone 40 MG/ML VIAL IVP SCH (06:03)
[2019-02-14] MEDS ORDERED: Insulin DETEMIR 100 UNIT/ML X5UNITS SQ SCH ×3 (07:15→21:00)
[2019-02-14] MEDS: predniSONE 20 MG TABLET PO SCH (07:34)
[2019-02-14] MEDS: Metoprolol XL (24 HR) Succ 50 MG TAB.ER.24H PO SCH (07:35)
[2019-02-14] MEDS: Apixaban 5 MG TABLET PO SCH ×2 (07:35→19:58)
[2019-02-14] MEDS ORDERED: Aspirin Enteric Coated 81 MG Tablet PO SCH (09:00)
[2019-02-14] MEDS ORDERED: Metoprolol XL (24 HR) Succ 50 MG TAB.ER.24H PO SCH (09:00)
[2019-02-14] MEDS: Doxycycline 100 MG in 0.9 % Sodium Chloride Mini Bag 100 ML IVPB SCH ×2 (09:01→21:00)
[2019-02-14] MEDS ORDERED: Insulin LISPRO 300 UNITS/3 ML VIAL SQ SCH ×3 (11:30→21:00)
[2019-02-14] MEDS ORDERED: Perflutren Lipid Microsphere 1.3 ML in 0.9 % Sodium Chloride 8.7 ML IVP ONE (12:14)
[2019-02-14 15:08] LABS: Magnesium 2.1 mg/dL (1.6-2.6)
[2019-02-14] MEDS ORDERED: Insulin DETEMIR 100 UNIT/ML X5UNITS SQ ONE (15:28)
[2019-02-14] MEDS: Furosemide 20 MG TABLET PO SCH (15:35)
[2019-02-14] MEDS: Insulin DETEMIR 100 UNIT/ML X5UNITS SQ SCH (19:58)
[2019-02-15] MEDS: Levalbuterol Neb 1.25 MG/3 ML IH SCH ×3 (03:47→15:35)
[2019-02-15 08:20] LABS: Basophils # 0.1 K/mcL (0.0-0.2); Basophils % 0.3 %; Hematocrit 32.8 % (35.3-44.9); Hemoglobin 10.2 g/dL (11.5-15.4); Immature Granulocytes % 2.6 % (0-4); Mean Corpuscular HGB Conc 31.1 g/dL (31.6-35.5); Mean Corpuscular Hemoglobin 25.8 pg (28.0-33.3); Mean Platelet Volume 9.7 fL (9.4-12.4); Monocytes # 1.1 K/mcL (0.0-1.3); Monocytes % 5.6 %; Neutrophils # 16.2 K/mcL (1.6-8.9); Nucleated Red Blood Cells 0.3 /100 WBC (0); Platelet Count 263 K/mcL (140-400); Red Blood Count 3.95 M/mcL (3.82-4.97); Red Cell Distribution Width 17.3 % (11.5-14.5); Segmented Neutrophils % 81.5 %; White Blood Count 19.9 K/mcL (4.3-11.1)
[2019-02-15 08:34] LABS: Albumin 3.3 g/dL (3.5-5.7); Albumin/Globulin Ratio 1.2 (1.1-2.2); Bilirubin,Total 0.4 mg/dL (0.3-1.0); Calcium 9.1 mg/dL (8.6-10.3); Globulin 2.8 g/dL (2.4-3.5); Magnesium 2.1 mg/dL (1.6-2.6); Phosphorous 4.5 mg/dL (2.7-4.5); Potassium 4.3 mEq/L (3.5-5.1); Total Protein 6.1 g/dL (6.4-8.9)
[2019-02-15] MEDS: Insulin DETEMIR 100 UNIT/ML X5UNITS SQ SCH (08:44)
[2019-02-15] MEDS: Doxycycline 100 MG in 0.9 % Sodium Chloride Mini Bag 100 ML IVPB SCH (08:44)
[2019-02-15] MEDS: Furosemide 20 MG TABLET PO SCH (08:45)
[2019-02-15] MEDS: Metoprolol XL (24 HR) Succ 50 MG TAB.ER.24H PO SCH (08:45)
[2019-02-15] MEDS: Apixaban 5 MG TABLET PO SCH (08:45)
[2019-02-15] MEDS: predniSONE 20 MG TABLET PO SCH (08:45)
[2019-02-15] MEDS: Insulin LISPRO 300 UNITS/3 ML VIAL SQ SCH ×3 (08:46→15:15)
[2019-02-15] MEDS ORDERED: Aspirin 81 MG TAB.CHEW PO SCH (09:53)
[2019-02-15 15:22] VITALS: BP 139/74
== END 2019-02-15 18:07 | disposition home or self-care (01) | DRG 309 ==
LOC: ICNU 21:55
PROVIDERS: ADMIT Pediatrics; ATTEND Pediatrics